=== PATIENT | female | born 1960 | race Native Hawaiian/Other Pacific Islander ===

== ENCOUNTER 2021-11-23 20:41 | Emergency (ER) | payer OTHER ==
[~2021-11-23] VITALS: Ht 165.1 cm; Wt 54.0 kg
[2021-11-23 20:41] VITALS: TEMP 97.8
[2021-11-23 21:35] LABS: PLATELET COUNT 191 K/uL (152-353)
[2021-11-23 21:36] LABS: POTASSIUM 3.1 mmol/L (3.6-5.2)
[2021-11-23 22:06] VITALS: BP 98/57
[2021-11-23] MEDS ORDERED: ARIPIPRAZOLE5 MG PO (23:10)
[2021-11-23] MEDS ORDERED: EPIPEN 2-P0.3 MG/0.3 INJ (23:11)
[2021-11-23] MEDS ORDERED: BACLOFEN5 MG PO (23:12)
[2021-11-23] MEDS ORDERED: VITAMIN D5000 UNIT PO (23:13)
[2021-11-23] MEDS ORDERED: VITAMIN B-121000 MC2 PO (23:14)
[2021-11-23] MEDS ORDERED: ACID CONTROL20 MG PO (23:16)
[2021-11-23] MEDS ORDERED: FERROUS SULF325 M1 PO (23:17)
[2021-11-23] MEDS ORDERED: HYDROCODONE BIT1 TA1 PO (23:18)
[2021-11-23] MEDS ORDERED: LORA1TAB17 PO (23:20)
[2021-11-23] MEDS ORDERED: MIDODRINE2.5 MG PO (23:22)
[2021-11-23] MEDS ORDERED: SERT100T PO (23:23)
[2021-11-23] MEDS ORDERED: SUCRALFATE1 GM PO (23:24)
[2021-11-23] MEDS ORDERED: TYLENOL325 MG PO (23:25)
== END 2021-11-23 22:06 | disposition still patient (30) ==
LOC: ED 20:41
PROVIDERS: Hospitalist
DX: F25.8 Other schizoaffective disorders (principal); F03.91 Unspecified dementia, unspecified severity, with behavioral disturbance; Z91.83 Wandering in diseases classified elsewhere; Z11.52 Encounter for screening for COVID-19; Z04.6 Encounter for general psychiatric examination, requested by authority
CPT/HCPCS: 36415; 80053; 85027; 87635; 93005; 99283; U0003